=== PATIENT | female | born 1940 | race Caucasian/White ===

== ENCOUNTER → 2016-10-28 | Outpatient (CLI) | payer MEDICARE ==
--- NOTE | 2016-10-28 14:56 | US ---
EXAMINATION TYPE: US carotid duplex BILAT DATE OF EXAM: 10/28/2016 COMPARISON: NONE CLINICAL HISTORY: I65.29 Carotid Stenosis. EXAM MEASUREMENTS: RIGHT: Peak Systolic Velocity (PSV) cm/sec ----- Right CCA: 57.2 ----- Right ICA: 124.0 ----- Right ECA: 91.8 ICA/CCA ratio: 2.2 RIGHT: End Diastole cm/sec ----- Right CCA: 11.9 ----- Right ICA: 39.2 ----- Right ECA: 11.5 LEFT: Peak Systolic Velocity (PSV) cm/sec ----- Left CCA: 82.2 ----- Left ICA: 98.8 ----- Left ECA: 96.3 ICA/CCA ratio: 1.2 LEFT: End Diastole cm/sec ----- Left CCA: 14.6 ----- Left ICA: 29.1 ----- Left ECA: 13.6 VERTEBRALS (direction of flow): Right Vertebral: Antegrade Left Vertebral: Antegrade Tortuous vessels noted bilaterally. Moderate plaque noted bilateral bifurcations and left CCA IMPRESSION: 1. 50-69% stenosis right ICA. Criteria for Assigning % of Stenosis / Diameter reduction (Estimation based on the indirect measurements of the internal carotid artery velocities (ICA PSV). 1. Normal (no stenosis)=ICA PSV < 125 cm/s: ratio < 2.0: ICA EDV<40 cm/s. 2. Less than 50% stenosis=ICA PSV < 125 cm/s: ratio < 2.0: ICA EDV<40 cm/s. 3. 50 to 69% stenosis=ICA PSV of 125 to 230 cm/s: ration 2.0 ? 4.0: ICA EDV 40-100 cm/s. 4. Greater than 70% stenosis to near occlusion= ICA PSV > 230 cm/s: ratio > 4.0: ICA EDV > 100 cm/s. 5. Near occlusion= ICA PSV velocities may be low or undetectable: variable ratio and ICA EDV. 6. Total occlusion=unable to detect flow.
== END | disposition home or self-care (01) ==
LOC: RADUSWWP 14:10
PROVIDERS: ATTEND Internal Medicine Geriatric Medicine
DX: I65.21 Occlusion and stenosis of right carotid artery (principal)
CPT/HCPCS: 93880

== ENCOUNTER → 2017-01-26 | Outpatient (CLI) | payer MEDICARE ==
--- NOTE | 2017-01-27 11:23 | MM ---
Reason for exam: screening (asymptomatic). Last mammogram was performed 1 year ago. History: Patient is postmenopausal. Family history of premenopausal breast cancer in mother at age 44. Took estrogen for 10 years beginning at age 49. Took progesterone for 10 years beginning at age 49. Physical Findings: A clinical breast exam by your physician is recommended on an annual basis and results should be correlated with mammographic findings. MG 3D Screening Mammo W/Cad Bilateral CC and MLO view(s) were taken. Prior study comparison: January 26, 2016, bilateral MG 3d screening mammo w/cad. January 17, 2015, bilateral MG screening mammo w CAD. 5mm retroareolar asymmetry in the right breast. ASSESSMENT: Incomplete: need additional imaging evaluation, BI-RAD 0 RECOMMENDATION: Special view mammogram of the right breast. If lesion persists on supplemental views, image directed ultrasound is recommended. [facility] will attempt to contact patient to return for supplemental views and ultrasound if indicated.
== END | disposition home or self-care (01) ==
LOC: RADMAMWWP 13:26
PROVIDERS: ATTEND Obstetrics & Gynecology
DX: Z12.31 Encounter for screening mammogram for malignant neoplasm of breast (principal)
CPT/HCPCS: 77063; G0202

== ENCOUNTER → 2017-02-02 | Outpatient (CLI) | payer MEDICARE ==
--- NOTE | 2017-02-02 11:47 | MM ---
Reason for exam: additional evaluation requested from abnormal screening. Last mammogram was performed less than 1 month ago. History: Patient is postmenopausal. Family history of premenopausal breast cancer in mother at age 44. Took estrogen for 10 years beginning at age 49. Took progesterone for 10 years beginning at age 49. Physical Findings: Nurse did not find any significant physical abnormalities on exam. MG 3D Work Up W/Cad RT CC and MLO view(s) were taken of the right breast. Prior study comparison: January 26, 2017, bilateral MG 3d screening mammo w/cad. January 26, 2016, bilateral MG 3d screening mammo w/cad. The breast tissue is heterogeneously dense. This may lower the sensitivity of mammography. There is no discrete abnormality. These results were verbally communicated with the patient and result sheet given to the patient on 02/02/17. ASSESSMENT: Negative, BI-RAD 1 RECOMMENDATION: Return to routine screening mammogram schedule for both breasts.
== END | disposition home or self-care (01) ==
LOC: RADMAMWWP 10:14
PROVIDERS: ATTEND Obstetrics & Gynecology
DX: R92.8 Other abnormal and inconclusive findings on diagnostic imaging of breast (principal)
CPT/HCPCS: G0206; G0279

== ENCOUNTER → 2018-02-03 | Outpatient (CLI) | payer MEDICARE ==
--- NOTE | 2018-02-06 13:32 | MM ---
Reason for exam: screening (asymptomatic). Last mammogram was performed 1 year ago. History: Patient is postmenopausal. Family history of premenopausal breast cancer in mother at age 44. Took estrogen for 10 years beginning at age 49. Took progesterone for 10 years beginning at age 49. Physical Findings: A clinical breast exam by your physician is recommended on an annual basis and results should be correlated with mammographic findings. MG 3D Screening Mammo W/Cad Bilateral CC and MLO view(s) were taken. Prior study comparison: February 02, 2017, right breast MG 3d work up w/cad RT. January 26, 2017, bilateral MG 3d screening mammo w/cad. The breast tissue is heterogeneously dense. This may lower the sensitivity of mammography. Benign calcifications bilaterally. No significant changes when compared with prior studies. ASSESSMENT: Benign, BI-RAD 2 RECOMMENDATION: Routine screening mammogram of both breasts in 1 year.
== END | disposition home or self-care (01) ==
LOC: RADMAMWWP 09:15
PROVIDERS: ATTEND Obstetrics & Gynecology
DX: Z12.31 Encounter for screening mammogram for malignant neoplasm of breast (principal)
CPT/HCPCS: 77063; 77067

== ENCOUNTER → 2019-02-07 | Outpatient (CLI) | payer MEDICARE ==
--- NOTE | 2019-02-08 13:47 | MM ---
Reason for exam: screening (asymptomatic). Last mammogram was performed 1 year ago. History: Patient is postmenopausal. Family history of premenopausal breast cancer in mother at age 44. Took estrogen for 10 years beginning at age 49. Took progesterone for 10 years beginning at age 49. Physical Findings: A clinical breast exam by your physician is recommended on an annual basis and results should be correlated with mammographic findings. MG 3D Screening Mammo W/Cad Bilateral CC and MLO view(s) were taken. Prior study comparison: February 03, 2018, bilateral MG 3d screening mammo w/cad. February 02, 2017, right breast MG 3d work up w/cad RT. The breast tissue is heterogeneously dense. This may lower the sensitivity of mammography. Focal asymmetry upper outer right breast 7.4cm from nipple. This finding is changed when compared with previous exams. ASSESSMENT: Incomplete: need additional imaging evaluation, BI-RAD 0 RECOMMENDATION: Special view mammogram of the right breast. If lesion persists on supplemental views, image directed ultrasound is recommended. [facility] will attempt to contact patient to return for supplemental views and ultrasound if indicated.
== END | disposition home or self-care (01) ==
LOC: RADMAMWWP 09:52
PROVIDERS: ATTEND Obstetrics & Gynecology
DX: Z12.31 Encounter for screening mammogram for malignant neoplasm of breast (principal)
CPT/HCPCS: 77063; 77067

== ENCOUNTER → 2019-02-19 | Outpatient (CLI) | payer MEDICARE ==
--- NOTE | 2019-02-19 19:56 | BD ---
EXAMINATION TYPE: Axial Bone Density DATE OF EXAM: 02/19/2019 COMPARISON: NONE CLINICAL HISTORY: 78-year-old female with disorder of bone Height: 60 IN Weight: 157 LBS FRAX RISK QUESTIONS: Family History (Parent hip fracture): YES FATHER Secondary Osteoporosis: 3. Menopause before 45: YES PARTIAL HYST AGE 29 RISK FACTORS HISTORY OF: Active: YES Postmenopausal woman: AGE 29 Take estrogen and/or progesterone medications: NOT NOW How long: AGE 30-31 MEDICATIONS: Thyroid Medications: YES Which medication: Levothyroxine How Lon YEAR Osteoporosis Medications: NOT NOW Which medication: Fosamax How Lon YEAR Additional Medications: LEVOTHYROXINE, BLOOD PRESSURE MEDS, CHOLESTEROL MEDS, ANTACID MEDS, GLUCOSAMI NE CHONDROITIN EXAM MEASUREMENTS: Bone mineral densitometry was performed using the [employer] System. Bone mineral density as measured about the Lumbar spine is: ----- L1-L4(G/cm2): 1.127 T Score Values are as follows: ----- L2: -0.5 ----- L3: -0.3 ----- L4: 0.0 ----- L1-L4: -0.4 Bone mineral density BASELINE Bone mineral density about the R hip (g/cm2): 0.778 Bone mineral density about the L hip (g/cm2): 0.866 T Score values are as follows: -----R Neck: -1.9 -----L Neck: -1.2 -----R Total: -0.6 -----L Total: -0.6 Bone mineral density BASELINE IMPRESSION: Osteopenia (T Score between -2.5 and -1). There is slightly increased risk of fracture and the patient may be considered for treatment. Re-Screen 2-5 years. NOTE: T-SCORE=SD OF THE YOUNG ADULT MEAN.
== END | disposition home or self-care (01) ==
LOC: RADBDWWP 09:13
PROVIDERS: ATTEND Obstetrics & Gynecology
DX: M85.80 Other specified disorders of bone density and structure, unspecified site (principal); M89.9 Disorder of bone, unspecified
CPT/HCPCS: 77080

== ENCOUNTER 2019-02-21 15:04 | Emergency (ER) | payer MEDICARE ==
[2019-02-21 15:37] VITALS: TEMP 98.1
[2019-02-21] MEDS ORDERED: IBUPROFEN 600 MG TAB PO STA (16:15)
--- NOTE | 2019-02-21 16:25 | ED ---
Fall HPI - General Chief Complaint: Fall Stated Complaint: fall/ hip and chest Time Seen by Provider: 02/21/19 16:07 Source: patient Mode of arrival: ambulatory - History of Present Illness Initial Comments: Patient is a 78-year-old female presenting to emergency Department after falling today at her house. Patient states she tripped over some edging in her yard falling to the right side of her body. Patient states she hit the right side of her face as well as a right forearm. Patient is also having left-sided rib pain. Patient denies being on a blood thinner. Patient denies LOC, headache. Patient does have some mild pain along the her right eye where she hit. Patient denies fever, chills, nausea, vomiting. Patient has no other complaints at this time. Upon arrival to ER, vital signs are stable. - Related Data Home Medications Medication Instructions Recorded Confirmed Losartan/Hydrochlorothiazide 1 tab PO DAILY 12/21/13 02/21/19 [Losartan-Hctz 100-25 mg Tab] Potassium Chloride [Klor-Con 10] 10 meq PO BID 12/21/13 02/21/19 Rosuvastatin Calcium [Crestor] 10 mg PO W/SUPPER 12/21/13 02/21/19 cycloSPORINE 0.05% OPHTH SOLN 1 applicator BOTH EYES Q12H 12/21/13 02/21/19 [Restasis 0.05% Ophth Soln] Aspirin EC [Ecotrin Low Dose] 1 tab PO HS 01/22/14 02/21/19 amLODIPine BESYLATE [Norvasc] 5 mg PO DAILY 01/22/14 02/21/19 Levothyroxine Sodium [Synthroid] 50 mcg PO DAILY 02/21/19 02/21/19 Metoprolol Tartrate [Lopressor] 200 mg PO DAILY 02/21/19 02/21/19 Allergies Allergy/AdvReac Type Severity Reaction Status Date / Time Sulfa (Sulfonamide Allergy Severe dizzyness Verified 02/21/19 16:56 Antibiotics) prochlorperazine edisylate Allergy Nausea & Verified 02/21/19 16:56 [From Compazine] Vomiting prochlorperazine maleate Allergy Nausea & Verified 02/21/19 16:56 [From Compazine] Vomiting naproxen AdvReac tachycardia Verified 02/21/19 16:56 Review of Systems ROS Statement: Those systems with pertinent positive or pertinent negative responses have been documented in the HPI. ROS Other: All systems not noted in ROS Statement are negative. Past Medical History Past Medical History: GERD/Reflux, Hyperlipidemia, Hypertension, Osteoarthritis (OA), Skin Disorder Additional Past Medical History / Comment(s): pt states CHF, vericose veins, and pre skincancer rx of chemo cream to legs History of Any Multi-Drug Resistant Organisms: None Reported Past Surgical History: Cholecystectomy, Hysterectomy, Tonsillectomy Additional Past Surgical History / Comment(s): Right knee replacement, bladder surgery Past Anesthesia/Blood Transfusion Reactions: No Reported Reaction Past Psychological History: Anxiety Smoking Status: Never smoker Past Alcohol Use History: None Reported Past Drug Use History: None Reported - Past Family History Mother Brother(s) Family Medical History: Cancer General Exam - General Exam Comments Initial Comments: GENERAL: Well-appearing, well-nourished and in no acute distress. HEAD: Atraumatic, normocephalic. EYES: Pupils equal round and reactive to light, extraocular movements intact, sclera anicteric, conjunctiva are normal. There is mild swelling and bruising to the lateral aspect of the right upper orbit. There is some mild tenderness with palpation. ENT: TMs normal, nares patent, oropharynx clear without exudates. Moist mucous membranes. NECK: Normal range of motion, supple without lymphadenopathy or JVD. LUNGS: Breath sounds clear to auscultation bilaterally and equal. No wheezes rales or rhonchi. Pain with palpation of the left lateral and anterior ribs. HEART: Regular rate and rhythm without murmurs, rubs or gallops. ABDOMEN: Soft, nontender, normoactive bowel sounds. No guarding, no rebound. No masses appreciated. : Deferred EXTREMITIES: Pain with palpation of the right forearm. There is no swelling or bruising noted. Patient has full range of motion of the right elbow and right shoulder. Normal range of motion of the left shoulder. Normal range of motion of the lower extremities. No clubbing or cyanosis. NEUROLOGICAL: Cranial nerves II through XII grossly intact. Normal speech, normal gait. PSYCH: Normal mood, normal affect. SKIN: Warm, Dry, normal turgor, no rashes or lesions noted. Limitations: no limitations Course Vital Signs 02/21/19 02/21/19 15:32 17:53 Temperature 98.1 F Pulse Rate 77 76 Respiratory 16 18 Rate Blood Pressure 182/81 187/81 O2 Sat by Pulse 96 95 Oximetry Medical Decision Making - Medical Decision Making Patient is a 78-year-old female presenting with pain to her right upper eye as well as her left ribs and right forearm after falling at her house. Patient landed on cement. Patient denies LOC, headache. Patient denies any abdominal pain. Patient denies being on blood thinners. On exam patient has mild bruising to the right upper orbit as well as some pain to palpation left ribs. CT of the brain, C-spine, facial bones reveal no acute fractures dislocations, no acute intercranial hemorrhage. X-rays of the right forearm and of bilateral ribs and chest report no acute fractures. Patient is stable for discharge at this time. As discussed with patient that she mainly has contusions. Patient will use ice and Motrin for pain relief. Patient is in agreement with this plan of care. Return parameters were discussed with the patient she verbalized understanding. Case discussed with Dr. Xie. Disposition Clinical Impression: Fall, Rib pain on left side, Contusion, eye, left Disposition: HOME SELF-CARE Condition: Stable Instructions (If sedation given, give patient instructions): Contusion in Adults (ED), Fall Prevention (ED) Additional Instructions: Please return to the Emergency Department if symptoms worsen or any other concerns. Continue with Motrin as needed for pain. Use icing to eye for swelling. Is patient prescribed a controlled substance at d/c from ED?: No Referrals: Grant Whitehead MD [Primary Care Provider] - 1-2 days
--- NOTE | 2019-02-21 17:05 | CT ---
EXAMINATION TYPE: CT brain cspine wo con, CT facial bones wo con DATE OF EXAM: 02/21/2019 COMPARISON: NONE HISTORY: Neck pain, headache, and right eye contusion post fall today CT DLP: 1062.6 (accession [id number]), 661.5 (accession [id number]) mGycm. Automated Exposure Control for Dose Reduction was Utilized. TECHNIQUE: CT scan of the head, facial bones, and cervical spine are performed without contrast. FINDINGS: There is no acute intracranial hemorrhage or midline shift identified. The ventricles an d sulci are within normal limits in size for patient's age. Areas of low attenuation in deep and per iventricular white matter are present. Findings presumed product of chronic small vessel ischemic charbel nge in patient of this age. The calvarium is intact. Nasal bones are intact. Orbital floors and marques are intact. The globes are intact bilaterally. Intra conal fat is preserved. Small ill-defined hematoma right preseptal region extending over right zygoma . Zygomatic arches are intact. Visualized portions of mandible is intact. Temporomandibular joints ar e maintained. The maxilla is intact. Pterygoid plates are intact. Paranasal sinuses are grossly clear . Cervical spine is visualized in its entirety from C1 through upper thoracic levels and demonstrates l oss of normal cervical curvature without evidence of acute fracture or dislocation. There is multile lucio spondylolisthesis on sagittal images. Prevertebral soft tissue appears within normal limits. The C1-C2 articulation is within normal limits on coronal images. Vertebral body heights are maintained . There is moderate multilevel disc space narrowing C3-C4 through the C6-C7 levels. Posterior spur di sc complexes are patent. The thecal sac C4-C5 through C6-C7 level on sagittal and axial images. Axial images show moderate to severe calcified plaque bilateral carotid bulb level. Thyroid gland is felt within normal limits. Lung apices are clear. IMPRESSION: 1. There is no acute fracture or dislocation evident in the cervical spine. 2. No acute intracranial hemorrhage or midline shift is seen. 3. No acute facial bone fracture or dislocation.
--- NOTE | 2019-02-21 17:22 | XR ---
EXAMINATION TYPE: XR forearm RT DATE OF EXAM: 02/21/2019 CLINICAL HISTORY: Right arm pain after injury TECHNIQUE: Two views of the right forearm are obtained. COMPARISON: None. FINDINGS: There is no acute fracture or dislocation seen in the right radius or ulna. Incidentally noted negative ulnar variance. The right elbow and wrist joints appear within normal limits. The ove rlying soft tissue appears within normal limits. Degenerative changes seen of the first carpometacarp al joint. IMPRESSION: There is no acute fracture or dislocation seen in the right radius or ulna.
--- NOTE | 2019-02-21 17:26 | XR ---
EXAMINATION TYPE: XR ribs bilat w pa chest xray DATE OF EXAM: 02/21/2019 COMPARISON: NONE HISTORY: Rib pain after fall. TECHNIQUE: Single frontal view of the chest and 2 views of the bilateral ribs were obtained. FINDINGS: Haziness of the hemidiaphragms appears to relate to atelectasis as this is improved on fron sabino and oblique views of the ribs and transient. Cardiomediastinal silhouette is upper limits of norm al. Slight eventration of the right hemidiaphragm is noted. Mild dextroscoliosis of the thoracic spin e. Degenerative changes of the shoulders are seen, right greater than left. No acute displaced rib fracture is seen nor chronic callused rib fracture deformity. There is mild ge neralized osseous demineralization. IMPRESSION: No acute displaced fracture of the ribs bilaterally. Transient subsegmental dependent ate lectasis.
[2019-02-21 17:55] VITALS: BP 187/81; PULSE 76; RESP 18
== END 2019-02-21 17:53 | disposition home or self-care (01) ==
LOC: EC 15:04
DX: S05.11XA Contusion of eyeball and orbital tissues, right eye, initial encounter (principal); R07.81 Pleurodynia; E78.5 Hyperlipidemia, unspecified; I11.0 Hypertensive heart disease with heart failure; I50.9 Heart failure, unspecified; M19.90 Unspecified osteoarthritis, unspecified site; Z96.651 Presence of right artificial knee joint; Z79.82 Long term (current) use of aspirin; Z79.890 Hormone replacement therapy; Z79.899 Other long term (current) drug therapy; Z88.2 Allergy status to sulfonamides; Z88.8 Allergy status to other drugs, medicaments and biological substances; Z88.6 Allergy status to analgesic agent; W01.10XA Fall on same level from slipping, tripping and stumbling with subsequent striking against unspecified object, initial encounter; Y92.096 Garden or yard of other non-institutional residence as the place of occurrence of the external cause
CPT/HCPCS: 70450; 70486; 71111; 72125; 99284

== ENCOUNTER → 2019-02-21 | Outpatient (CLI) | payer MEDICARE ==
--- NOTE | 2019-02-22 08:42 | MM ---
Reason for exam: additional evaluation requested from abnormal screening. Last mammogram was performed less than 1 month ago. History: Patient is postmenopausal. Family history of premenopausal breast cancer in mother at age 44. Took estrogen for 10 years beginning at age 49. Took progesterone for 10 years beginning at age 49. Physical Findings: Nurse did not find any significant physical abnormalities on exam. MG 3D Work Up W/Cad RT Spot compression CC, spot compression MLO, and LM view(s) were taken of the right breast. Prior study comparison: February 07, 2019, bilateral MG 3d screening mammo w/cad. January 26, 2016, bilateral MG 3d screening mammo w/cad. The breast tissue is heterogeneously dense. This may lower the sensitivity of mammography. There is no discrete abnormality. These results were verbally communicated with the patient and result sheet given to the patient on 02/21/19. ASSESSMENT: Negative, BI-RAD 1 RECOMMENDATION: Return to routine screening mammogram schedule for both breasts.
== END | disposition home or self-care (01) ==
LOC: RADMAMWWP 08:54
PROVIDERS: ATTEND Obstetrics & Gynecology
DX: R92.8 Other abnormal and inconclusive findings on diagnostic imaging of breast (principal)
CPT/HCPCS: 77065; G0279; 77061

== ENCOUNTER → 2020-04-30 | Outpatient (CLI) | payer MEDICARE ==
--- NOTE | 2020-05-01 08:34 | MM ---
Reason for exam: additional evaluation requested from prior study. Last mammogram was performed 1 year and 2 months ago. History: Patient is postmenopausal. Family history of premenopausal breast cancer in mother at age 44. Took estrogen for 10 years beginning at age 49. Took progesterone for 10 years beginning at age 49. Physical Findings: Nurse did not find any significant physical abnormalities on exam. MG 3D Diag Mammo W/Cad DALIA Bilateral CC and MLO view(s) were taken. Prior study comparison: February 21, 2019, right breast MG 3d work up w/cad RT. February 07, 2019, bilateral MG 3d screening mammo w/cad. The breast tissue is heterogeneously dense. This may lower the sensitivity of mammography. No significant new findings when compared with previous films. These results were verbally communicated with the patient and result sheet given to the patient on 04/30/20. ASSESSMENT: Benign, BI-RAD 2 RECOMMENDATION: Routine screening mammogram of both breasts in 1 year.
== END | disposition home or self-care (01) ==
LOC: RADMAMWWP 14:10
PROVIDERS: ATTEND Obstetrics & Gynecology
DX: N63.10 Unspecified lump in the right breast, unspecified quadrant (principal); N63.20 Unspecified lump in the left breast, unspecified quadrant
CPT/HCPCS: 77066; G0279; 77062

== ENCOUNTER 2020-06-26 13:05 | Emergency (ER) | payer MEDICARE ==
[2020-06-26 13:12] VITALS: TEMP 98.1
[2020-06-26] MEDS ORDERED: hydrALAZINE HCL 20 MG/ML 1 ML VIAL IVP STA (13:37)
--- NOTE | 2020-06-26 13:50 | ED ---
General Adult HPI - General Chief complaint: Headache Stated complaint: High BP Time Seen by Provider: 06/26/20 13:10 Source: patient, RN notes reviewed, old records reviewed Mode of arrival: ambulatory Limitations: no limitations - History of Present Illness Initial comments: This is an 79-year-old female presents emergency Department complaining that her blood pressure is elevated. Patient states she takes 3 blood pressure medications already. Patient states she had a mild headache and had a bloody nose over the weekend so she decided go get a blood pressure cuff and when she took her blood pressure was elevated so she came to the emergency department. Patient states her headache is very slight. Patient denies any lightheadedness or dizziness. Patient denies numbness or weakness. Patient denies any chest pain difficulty breathing shortness of breath. Patient denies any palpitations. Patient denies any recent fever chills or cough. Patient denies abdominal pain. Patient denies any leg swelling or calf tenderness. - Related Data Home Medications Medication Instructions Recorded Confirmed Potassium Chloride [Klor-Con 10] 10 meq PO BID 12/21/13 06/26/20 Rosuvastatin Calcium [Crestor] 10 mg PO W/SUPPER 12/21/13 06/26/20 cycloSPORINE 0.05% OPHTH SOLN 1 drop BOTH EYES Q12H 12/21/13 06/26/20 [Restasis 0.05% Ophth Soln] Aspirin EC [Ecotrin Low Dose] 81 mg PO HS 01/22/14 06/26/20 amLODIPine BESYLATE [Norvasc] 5 mg PO DAILY@1530 01/22/14 06/26/20 Levothyroxine Sodium [Synthroid] 50 mcg PO DAILY 02/21/19 06/26/20 Metoprolol Tartrate [Lopressor] 200 mg PO HS 02/21/19 06/26/20 Losartan Potassium 100 mg PO DAILY 06/26/20 06/26/20 Sucralfate [Carafate] 1 gm PO ACHS 06/26/20 06/26/20 hydroCHLOROthiazide [Hydrodiuril] 25 mg PO DAILY 06/26/20 06/26/20 Previous Rx's Medication Instructions Recorded hydrALAZINE HCL [Apresoline] 50 mg PO BID #20 tab 06/26/20 hydrALAZINE HCL [Apresoline] 50 mg PO BID #20 tab 06/26/20 Allergies Allergy/AdvReac Type Severity Reaction Status Date / Time Sulfa (Sulfonamide AdvReac Severe dizzyness Verified 06/26/20 14:08 Antibiotics) naproxen AdvReac tachycardia Verified 06/26/20 14:08 prochlorperazine edisylate AdvReac Nausea & Verified 06/26/20 14:08 [From Compazine] Vomiting prochlorperazine maleate AdvReac Nausea & Verified 06/26/20 14:08 [From Compazine] Vomiting Review of Systems ROS Statement: Those systems with pertinent positive or pertinent negative responses have been documented in the HPI. ROS Other: All systems not noted in ROS Statement are negative. Past Medical History Past Medical History: GERD/Reflux, Hyperlipidemia, Hypertension, Osteoarthritis (OA), Skin Disorder Additional Past Medical History / Comment(s): pt states CHF, vericose veins, and pre skin cancer rx of chemo cream to legs History of Any Multi-Drug Resistant Organisms: None Reported Past Surgical History: Cholecystectomy, Hysterectomy, Tonsillectomy Additional Past Surgical History / Comment(s): Right knee replacement, bladder surgery Past Anesthesia/Blood Transfusion Reactions: No Reported Reaction Past Psychological History: Anxiety Smoking Status: Never smoker Past Alcohol Use History: None Reported Past Drug Use History: None Reported - Past Family History Mother Brother(s) Family Medical History: Cancer General Exam - General Exam Comments Initial Comments: GENERAL: Patient is well-developed and well-nourished. Patient is nontoxic and well- hydrated and is in no acute distress. ENT: Neck is soft and supple. No significant lymphadenopathy is noted. Oropharynx is clear. Moist mucous membranes. Neck has full range of motion without eliciting any pain. EYES: The sclera were anicteric and conjunctiva were pink and moist. Extraocular movements were intact and pupils were equal round and reactive to light. Eyelids were unremarkable. PULMONARY: Unlabored respirations. Good breath sounds bilaterally. No audible rales rhonchi or wheezing was noted. CARDIOVASCULAR: There is a regular rate and rhythm without any murmurs gallops or rubs. ABDOMEN: Soft and nontender with normal bowel sounds. SKIN: Skin is clear with no lesions or rashes and otherwise unremarkable. NEUROLOGIC: Patient is alert and oriented x3. Cranial nerves II through XII are grossly intact. Motor and sensory are also intact. Normal speech, volume and content. Symmetrical smile. MUSCULOSKELETAL: Normal extremities with adequate strength and full range of motion. No lower ex tremity swelling or edema. No calf tenderness. LYMPHATICS: No significant lymphadenopathy is noted PSYCHIATRIC: Normal psychiatric evaluation. Limitations: no limitations Course Vital Signs 06/26/20 06/26/20 06/26/20 13:10 13:49 14:12 Temperature 98.1 F Pulse Rate 74 77 78 Respiratory 18 16 16 Rate Blood Pressure 209/87 223/93 154/67 O2 Sat by Pulse 99 98 99 Oximetry Medical Decision Making - Medical Decision Making EKG shows normal sinus rhythm at 69 bpm MT interval is 162 QRS is 88 QT interval 426 QTC is 456. Patient's EKG shows no ST segment elevation or depression. - Lab Data Result diagrams: 06/26/20 13:37 06/26/20 13:37 Lab Results 06/26/20 06/26/20 Range/Units 13:37 13:37 WBC 9.0 (3.8-10.6) k/uL RBC 4.82 (3.80-5.40) m/uL Hgb 14.8 (11.4-16.0) gm/dL Hct 44.0 (34.0-46.0) % MCV 91.3 (80.0-100.0) fL MCH 30.8 (25.0-35.0) pg MCHC 33.7 (31.0-37.0) g/dL RDW 13.0 (11.5-15.5) % Plt Count 306 (150-450) k/uL MPV 7.3 Neutrophils % 65 % Lymphocytes % 23 % Monocytes % 5 % Eosinophils % 4 % Basophils % 1 % Neutrophils # 5.9 (1.3-7.7) k/uL Lymphocytes # 2.1 (1.0-4.8) k/uL Monocytes # 0.5 (0-1.0) k/uL Eosinophils # 0.4 (0-0.7) k/uL Basophils # 0.1 (0-0.2) k/uL Sodium 138 (137-145) mmol/L Potassium 4.0 (3.5-5.1) mmol/L Chloride 99 (98-107) mmol/L Carbon Dioxide 26 (22-30) mmol/L Anion Gap 13 mmol/L BUN 18 H (7-17) mg/dL Creatinine 0.74 (0.52-1.04) mg/dL Est GFR (CKD-EPI)AfAm 89 (>60 ml/min/1.73 sqM) Est GFR (CKD-EPI)NonAf 77 (>60 ml/min/1.73 sqM) Glucose 112 H (74-99) mg/dL Calcium 10.1 (8.4-10.2) mg/dL Magnesium 2.1 (1.6-2.3) mg/dL Total Bilirubin 0.9 (0.2-1.3) mg/dL AST 31 (14-36) U/L ALT 22 (4-34) U/L Alkaline Phosphatase 71 (38-126) U/L Total Protein 8.9 H (6.3-8.2) g/dL Albumin 4.8 (3.5-5.0) g/dL Disposition Clinical Impression: Hypertension Disposition: HOME SELF-CARE Prescriptions: hydrALAZINE HCL [Apresoline] 50 mg PO BID #20 tab hydrALAZINE HCL [Apresoline] 50 mg PO BID #20 tab Is patient prescribed a controlled substance at d/c from ED?: No Referrals: Grant Whitehead MD [Primary Care Provider] - 1-2 days
[2020-06-26 13:51] VITALS: RESP 16
[2020-06-26 13:56] LABS: Basophils # (A) 0.1 k/uL (0-0.2); Basophils % (A) 1 %; Eosinophils # (A) 0.4 k/uL (0-0.7); Eosinophils % (A) 4 %; HGB 14.8 gm/dL (11.4-16.0); Lymphocytes # (A) 2.1 k/uL (1.0-4.8); Lymphocytes % (A) 23 %; MCH 30.8 pg (25.0-35.0); MCHC 33.7 g/dL (31.0-37.0); MCV 91.3 fL (80.0-100.0); Mean Platelet Volume 7.3; Monocytes # (A) 0.5 k/uL (0-1.0); Monocytes % (A) 5 %; Neutrophils # (A) 5.9 k/uL (1.3-7.7); Neutrophils % (A) 65 %; Platelet Count 306 k/uL (150-450); RBC 4.82 m/uL (3.80-5.40)
[2020-06-26 14:09] LABS: Albumin 4.8 g/dL (3.5-5.0); Calcium 10.1 mg/dL (8.4-10.2); Magnesium 2.1 mg/dL (1.6-2.3); Total Bilirubin 0.9 mg/dL (0.2-1.3); Total Protein 8.9 g/dL (6.3-8.2)
[2020-06-26 14:14] VITALS: BP 154/67; PULSE 78
== END 2020-06-26 14:46 | disposition home or self-care (01) ==
LOC: EC 13:05
DX: I11.0 Hypertensive heart disease with heart failure (principal); I50.9 Heart failure, unspecified; E78.5 Hyperlipidemia, unspecified; K21.9 Gastro-esophageal reflux disease without esophagitis; M19.90 Unspecified osteoarthritis, unspecified site; Z79.82 Long term (current) use of aspirin; Z79.899 Other long term (current) drug therapy; Z79.890 Hormone replacement therapy; Z88.2 Allergy status to sulfonamides; Z88.6 Allergy status to analgesic agent; Z88.8 Allergy status to other drugs, medicaments and biological substances; Z96.651 Presence of right artificial knee joint; Z85.828 Personal history of other malignant neoplasm of skin
CPT/HCPCS: 36415; 93005; 80053; 83735; 85025; 99284; 96374; J0360

== ENCOUNTER → 2021-02-13 | Outpatient (CLI) | payer MEDICARE ==
--- NOTE | 2021-02-13 12:54 | US ---
EXAMINATION TYPE: US abdomen complete DATE OF EXAM: 02/13/2021 COMPARISON: NONE CLINICAL HISTORY: R94.5 Abnormal liver function studies. EXAM MEASUREMENTS: Liver Length: 13.3 cm CBD: 0.7 cm Spleen: 8.1x2.4x7.6 cm Right Kidney: 10.2x5.2x4.8 cm Left Kidney: 9.2x4.5x3.9 cm Pancreas: wnl Liver: Increased attenuation Gallbladder: Surgically absent CBD: wnl- for absent GB Spleen: wnl Right Kidney: wnl Left Kidney: wnl Upper IVC: wnl Abd Aorta: wnl IMPRESSION: 1. Nonspecific pattern of liver can be associated with hepatic steatosis or diffuse hepatocellular di sease including hepatitis.
== END | disposition home or self-care (01) ==
LOC: RADUSWWP 12:15
PROVIDERS: ATTEND Internal Medicine Geriatric Medicine
DX: R94.5 Abnormal results of liver function studies (principal)
CPT/HCPCS: 76700

== ENCOUNTER → 2021-03-11 | Outpatient (CLI) | payer MEDICARE ==
--- NOTE | 2021-03-11 15:12 | BD ---
EXAMINATION TYPE: Axial Bone Density DATE OF EXAM: 03/11/2021 COMPARISON: NONE CLINICAL HISTORY: Height: 4 FT 11 IN Weight: 148 FRAX RISK QUESTIONS: Alcohol (3 or more units per day): NO Family History (Parent hip fracture): YES Glucocorticoids (More than 3mos): NO (Ex: prednisone, prednisolone, methylprednisolone, dexamethasone, and hydrocortisone). History of Fracture in Adulthood: NO Secondary Osteoporosis: 1. Type 1 Diabetes: NO 2. Hyperthyroidism: HYPO 3. Menopause before 45: NO 4. Malnutrition: NO 5. Chronic liver disease: FATTY Rheumatoid Arthritis: NO Current Tobacco Use: NO RISK FACTORS HISTORY OF: Surgery to Spine/Hip(right/left)/Wrist (right/left): NO Family History of Osteoporosis: NO Active: NO Diet low in dairy products/other sources of calcium: NO Postmenopausal woman: PART HYST AGE 29 MENOPAUSE OVER LATE 40'S Take estrogen and/or progesterone medications: VERY SHORT TIME Lost more than 2 inches in height since high school: YES MEDICATIONS: Thyroid Medications: YES Which medication: LEVOTHYROXINE How Long: SEV YEARS Additional Medications: LEVOTHYROXINE, ROVSUVASTATIN, METOPROLOL, LOSARTAN, AMLODIPINE, HYDRALAZINE, ASPIRIN, HYDROCHLOROTHIAZIDE, PANTOPRAZOLE, Additional History: EXAM MEASUREMENTS: Bone mineral densitometry was performed using the [employer] System. Bone mineral density as measured about the Lumbar spine is: ----- L1-L4(G/cm2): 1.211 T Score Values are as follows: ----- L2: 0.1 ----- L3: 0.1 ----- L4: 0.7 ----- L1-L4: 0.3 Bone mineral density has: INCREASED 5.9 % since study of: 2019 Bone mineral density about the R hip (g/cm2): 0.758 Bone mineral density about the L hip (g/cm2): 0.823 T Score values are as follows: -----R Neck: -2.0 -----L Neck: -1.5 -----R Total: -0.7 -----L Total: -0.9 Bone mineral density has: DECREASED -2.4 % since study of: 2019 IMPRESSION: Osteopenia (T Score between -2.5 and -1). There is slightly increased risk of fracture and the patient may be considered for treatment. Re-Screen 2-5 years. NOTE: T-SCORE=SD OF THE YOUNG ADULT MEAN.
== END | disposition home or self-care (01) ==
LOC: RADBDWWP 14:31
PROVIDERS: ATTEND Internal Medicine Geriatric Medicine
DX: M85.852 Other specified disorders of bone density and structure, left thigh (principal)
CPT/HCPCS: 77080

== ENCOUNTER → 2021-05-12 | Outpatient (CLI) | payer MEDICARE ==
--- NOTE | 2021-05-13 12:38 | MM ---
Reason for exam: screening (asymptomatic). Last mammogram was performed 1 year ago. History: Patient is postmenopausal. Family history of premenopausal breast cancer in mother at age 44. Took estrogen for 10 years beginning at age 49. Took progesterone for 10 years beginning at age 49. Physical Findings: A clinical breast exam by your physician is recommended on an annual basis and results should be correlated with mammographic findings. MG 3D Screening Mammo W/Cad Bilateral CC and MLO view(s) were taken. Prior study comparison: April 30, 2020, bilateral MG 3d diag mammo w/cad [facility]. February 21, 2019, right breast MG 3d work up w/cad RT. The breast tissue is heterogeneously dense. This may lower the sensitivity of mammography. Benign appearing bilateral calcifications. No significant changes when compared with prior studies. ASSESSMENT: Benign, BI-RAD 2 RECOMMENDATION: Routine screening mammogram of both breasts in 1 year.
== END | disposition home or self-care (01) ==
LOC: RADMAMWWP 13:30
PROVIDERS: ATTEND Internal Medicine Geriatric Medicine
DX: Z12.31 Encounter for screening mammogram for malignant neoplasm of breast (principal); Z80.3 Family history of malignant neoplasm of breast; Z78.0 Asymptomatic menopausal state
CPT/HCPCS: 77063; 77067

== ENCOUNTER → 2022-05-27 | Outpatient (CLI) | payer MEDICARE ==
--- NOTE | 2022-05-30 13:39 | MM ---
Reason for Exam: Screening (asymptomatic). Last screening mammogram was performed 12 month(s) ago. Patient History: Menarche at age 12. First Full-Term at age 20. Hysterectomy at age 30. Postmenopausal. Estrogen for 10 years from age 49 until age 59. Progesterone for 10 years from age 49 until age 59. Niece had breast cancer, age 55. Niece had breast cancer, age 60. Mother had breast cancer, age 44. Risk Values: Gilma 5 year model risk: 3.0%. NCI Lifetime model risk: 4.0%. Prior Study Comparison: 02/21/2019 Right Diagnostic Mammogram, [facility]. 04/30/2020 Bilateral Diagnostic Mammogram, [facility]. 05/12/2021 Bilateral Screening Mammogram, [facility]. Tissue Density: The breast tissue is heterogeneously dense. This may lower the sensitivity of mammography. Findings: Analyzed By CAD. There is no suspicious group of microcalcifications or new suspicious mass in either breast. Overall Assessment: Benign, BI-RAD 2 Management: Screening Mammogram of both breasts in 1 year. 1. Patient should continue monthly self breast exams. 2. A clinical breast exam by your physician is recommended on an annual basis. 3. This exam should not preclude additional follow-up of suspicious palpable abnormalities. Electronically signed and approved by: Maryan Blancas M.D. Radiologist
== END | disposition home or self-care (01) ==
LOC: RADMAMWWP 15:43
PROVIDERS: ATTEND Obstetrics & Gynecology
DX: Z12.31 Encounter for screening mammogram for malignant neoplasm of breast (principal); Z80.3 Family history of malignant neoplasm of breast; Z78.0 Asymptomatic menopausal state
CPT/HCPCS: 77063; 77067

== ENCOUNTER → 2023-05-31 | Outpatient (CLI) | payer MEDICARE ==
--- NOTE | 2023-05-31 16:29 | BD ---
EXAMINATION TYPE: Axial Bone Density DATE OF EXAM: 05/31/2023 CLINICAL HISTORY: 82 years old Female. ICD-10 CODE: ,M81.0 Height: 59.5 in Weight: 152 lbs FRAX RISK QUESTIONS: Family History (Parent hip fracture): yes father Secondary Osteoporosis: 3. Menopause before 45: partial hysterectomy age 29 5. Chronic liver disease: fatty liver RISK FACTORS HISTORY OF: Active: limited Diet low in dairy products/other sources of calcium: yes Postmenopausal woman: partial hysterectomy age 29 Take estrogen and/or progesterone medications: not now How lon years MEDICATIONS: Thyroid Medications: yes Which medication: Levothyroxine How Lon years Additional Medications: cholesterol meds, blood pressure meds, EXAM MEASUREMENTS: Bone mineral densitometry was performed using the [employer] System. Bone mineral density as measured about the Lumbar spine is: ----- L1-L4(G/cm2): 1.170 T Score Values are as follows: ----- L1: -0.8 ----- L2: 0.1 ----- L3: -0.1 ----- L4: 0.2 ----- L1-L4: -0.1 Z Score Values are as follows: ----- L1: 1.1 ----- L2: 1.9 ----- L3: 1.8 ----- L4: 2.0 ----- L1-L4: 1.7 Bone mineral density has: Decreased -3.4% since study of: 03/11/2021 Bone mineral density about the R hip (g/cm2): 0.900 Bone mineral density about the L hip (g/cm2): 0.866 T Score values are as follows: -----R Neck: -2.2 -----L Neck: -1.7 -----R Total: -0.9 -----L Total: -1.1 Z Score values are as follows: -----R Neck: 0.1 -----L Neck: 0.6 -----R Total: 1.3 -----L Total: 1.0 Bone mineral density has: Decreased -2.6% since study of: 03/11/2021 FRAX%s: The graph provided illustrates a 31.1% chance for a major osteoporotic fx and a 21.1% chance for the hips probability for fx in 10 years time. IMPRESSION: Osteopenia (T Score between -2.5 and -1). There is slightly increased risk of fracture and the patient may be considered for treatment. Re-Screen 2-5 years. NOTE: T-SCORE=SD OF THE YOUNG ADULT MEAN.
--- NOTE | 2023-06-01 13:33 | MM ---
Reason for Exam: Screening (asymptomatic). Last mammogram was performed 1 year(s) and 1 month(s) ago. Patient History: Menarche at age 12. First Full-Term at age 20. Hysterectomy at age 30. Postmenopausal. Estrogen for 10 years from age 49 until age 59. Progesterone for 10 years from age 49 until age 59. Niece had breast cancer, age 55. Niece had breast cancer, age 60. Mother had breast cancer, age 44. Risk Values: Gilma 5 year model risk: 2.9%. NCI Lifetime model risk: 3.5%. Prior Study Comparison: 01/26/2017 Bilateral Screening Mammogram, [facility]. 02/02/2017 Right Diagnostic Mammogram, [facility]. 02/03/2018 Bilateral Screening Mammogram, [facility]. 02/07/2019 Bilateral Screening Mammogram, [facility]. 02/21/2019 Right Diagnostic Mammogram, [facility]. 04/30/2020 Bilateral Diagnostic Mammogram, [facility]. 05/12/2021 Bilateral Screening Mammogram, [facility]. 05/27/2022 Bilateral MG 3D screening mammo w/cad, [facility]. Tissue Density: The breast tissue is heterogeneously dense. This may lower the sensitivity of mammography. Findings: Analyzed By CAD. There is no suspicious group of microcalcifications or new suspicious mass. Benign-appearing calcifications bilaterally. Overall Assessment: Benign, BI-RAD 2 Management: Screening Mammogram of both breasts in [address] [facility] will attempt to contact patient to return for supplemental views and ultrasound if indicated. Patient should continue monthly self-breast exams. A clinical breast exam by your physician is recommended on an annual basis. This exam should not preclude additional follow-up of suspicious palpable abnormalities. Note on Gilma scores and lifetime risk: 1. A Gilma score greater than 3% is considered moderate risk. If this is the case, consider specialist referral to assess eligibility for a risk reducing agent. 2. If overall lifetime risk for the development of breast cancer is 20% or higher, the patient may qualify for future screening with alternating mammogram and breast MRI. Electronically signed and approved by: Cornelius Kohli DO
== END | disposition home or self-care (01) ==
LOC: RADMAMWWP 12:33
PROVIDERS: ATTEND Internal Medicine Geriatric Medicine
DX: Z12.31 Encounter for screening mammogram for malignant neoplasm of breast (principal); M81.0 Age-related osteoporosis without current pathological fracture; M85.89 Other specified disorders of bone density and structure, multiple sites; Z78.0 Asymptomatic menopausal state; Z80.3 Family history of malignant neoplasm of breast
CPT/HCPCS: 77063; 77067; 77080

== ENCOUNTER → 2023-06-27 | Outpatient (CLI) | payer MEDICARE ==
--- NOTE | 2023-06-27 17:42 | US ---
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 Indirect Doppler criteria was utilized. FINDINGS: EXAM MEASUREMENTS: RIGHT: Peak Systolic Velocity (PSV) cm/sec ----- Right CCA: 72.9 ----- Right ICA: 84.4 ----- Right ECA: 129 ICA/CCA ratio: 1.2 RIGHT: End Diastole cm/sec ----- Right CCA: 12.1 ----- Right ICA: 19.5 ----- Right ECA: 7.5 LEFT: Peak Systolic Velocity (PSV) cm/sec ----- Left CCA: 141 ----- Left ICA: 174 ----- Left ECA: 131 ICA/CCA ratio: 1.2 LEFT: End Diastole cm/sec ----- Left CCA: 25.4 ----- Left ICA: 25.4 ----- Left ECA: 0.0 VERTEBRALS (direction of flow): Right Vertebral: Antegrade Left Vertebral: Antegrade Rhythm: Normal GLASS BLOCK INSTALLER NOTES: Heterogeneous plaque on the left with no significant stenosis seen, tortous vessel s IMPRESSION: No evidence for hemodynamically significant stenosis. Criteria for Assigning % of Stenosis / Diameter reduction (Estimation based on the indirect measurements of the internal carotid artery velocities (ICA PSV). 1. Normal (no stenosis)=ICA PSV < 125 cm/s: ratio < 2.0: ICA EDV<40 cm/s. 2. Less than 50% stenosis=ICA PSV < 125 cm/s: ratio < 2.0: ICA EDV<40 cm/s. 3. 50 to 69% stenosis=ICA PSV of 125 to 230 cm/s: ration 2.0 ? 4.0: ICA EDV 40-100 cm/s. 4. Greater than 70% stenosis to near occlusion= ICA PSV > 230 cm/s: ratio > 4.0: ICA EDV > 100 cm/s. 5. Near occlusion= ICA PSV velocities may be low or undetectable: variable ratio and ICA EDV. 6. Total occlusion=unable to detect flow.
--- NOTE | 2023-06-27 23:01 | MR ---
EXAMINATION TYPE: MR brain wo/w con DATE OF EXAM: 06/27/2023 COMPARISON: None HISTORY: Stroke of left eye CONTRAST: Performed utilizing 7 mL intravenous Gadavist gadolinium contrast. TECHNIQUE: Multiplanar, multiecho imaging on a 3.0 Sandy magnet is performed through the brain. Stud y is performed within 24 hours of arrival to the hospital. The craniovertebral junction is normal. The pituitary is normal. Diffusion-weighted imaging is performed. No abnormal hyperintensity is present to suggest an acute i ntracranial infarct or acute ischemic change. There are patchy to confluence periventricular white matter hyperintensities on T2 and inversion gabi very weighted sequences compatible with microvascular ischemic changes. Some changes are within the b rainstem. Chronic white matter ischemic changes are within the differential. Vasculitis, focal sclero sis, Lyme disease could be considered within the differential. Ventricles and sulci are mildly prominent for the patient age. There is some fluid within the right m astoid air cells. Correlate for mastoiditis. No abnormal enhancement is evident. IMPRESSION: 1. Atrophy with patchy to confluent periventricular white matter changes. Chronic white matter ischem ic changes likely within the differential. 2. Medical consideration for mild right mastoiditis.
--- NOTE | 2023-06-28 10:25 | CA ---
Transthoracic Echo Report Name: Tammy Jones Age: 82 Gender: F : 1940 Exam Date: 06/27/2023 17:29 Exam Location: [facility] Ht (in): 60 Wt (lb): 150 Ordering Physician: Grant Whitehead MD Attending/Referring Phys: Grant Whitehead MD Cat Scan Technologist Liliya Jimenez [facility] Procedure CPT: Indications: I63.9 stoke Cardiac Hx: Technical Quality: Fair Contrast 1: Total Dose (mL): Contrast 2: Total Dose (mL): MEASUREMENTS (Male / Female) Normal Values 2D ECHO LV Diastolic Diameter PLAX 5.5 cm 4.2 - 5.9 / 3.9 - 5.3 cm LV Systolic Diameter PLAX 3.5 cm IVS Diastolic Thickness 0.8 cm 0.6 - 1.0 / 0.6 - 0.9 cm LVPW Diastolic Thickness 1.0 cm 0.6 - 1.0 / 0.6 - 0.9 cm LV Relative Wall Thickness 0.3 LVOT Diameter 2.0 cm LA Volume 50.6 cm??? 18 - 58 / 22 - 52 cm??? LA Volume Index 29.4 cm???/m??? 16 - 28 cm???/m??? Ascending Aorta Diameter 3.6 cm M-MODE Aortic Root Diameter MM 2.6 cm LA Systolic Diameter MM 4.4 cm LA Ao Ratio MM 1.7 AV Cusp Separation MM 1.8 cm DOPPLER AV Peak Velocity 152.2 cm/s AV Peak Gradient 9.3 mmHg AV Mean Velocity 100.9 cm/s AV Mean Gradient 4.7 mmHg AV Velocity Time Integral 31.7 cm AI Peak Velocity 356.6 cm/s AI Peak Gradient 50.9 mmHg AI Pressure Half Time 523.0 ms LVOT Peak Velocity 108.6 cm/s LVOT Peak Gradient 4.7 mmHg LVOT Velocity Time Integral 26.0 cm LVOT Stroke Volume 79.3 cm??? LVOT Stroke Volume Index 48.0 ml/m??? LVOT Cardiac Index 3363.3 cm???/min???m??? AV Area Cont Eq vti 2.5 cm??? AV Area Cont Eq pk 2.2 cm??? MV Area PHT 3.6 cm??? Mitral E Point Velocity 71.3 cm/s Mitral A Point Velocity 98.2 cm/s Mitral E to A Ratio 0.7 MV Deceleration Time 210.9 ms LV E' Lateral Velocity 8.2 cm/s Mitral E to LV E' Lateral Ratio 8.7 LV E' Septal Velocity 5.4 cm/s Mitral E to LV E' Septal Ratio 13.3 TR Peak Velocity 316.9 cm/s TR Peak Gradient 40.2 mmHg Right Atrial Pressure 3.0 mmHg Pulmonary Artery Systolic Pressu 43.2 mmHg Right Ventricular Systolic Press 43.2 mmHg FINDINGS Left Ventricle Mildly increased left ventricular diastolic diameter. Mildly increased posterior wall thickness. Normal left ventricular systolic function with no obvious regional wall motion abnormalities. Left ventricular ejection fraction is estimated at 55-60%. Right Ventricle Right ventricle at upper limits of normal. Moderate pulmonary hypertension. Right Atrium Normal right atrial size. Left Atrium Mildly increased left atrial volume. Mildly increased left atrial area. Mitral Valve Mitral valve thickened. Mitral annular calcification. Moderate thickening/calcification of the posterior mitral valve leaflet. Mild mitral regurgitation. Aortic Valve Trileaflet aortic valve. Mild thickening and calcification of the aortic valve cusps. Mild aortic regurgitation. Tricuspid Valve Structurally normal tricuspid valve. Mild tricuspid regurgitation. Pulmonic Valve Structurally normal pulmonic valve. Moderate pulmonic regurgitation. Pericardium No pericardial effusion. Aorta Normal size aortic root and proximal ascending aorta. CONCLUSIONS Left ventricular ejection fraction is estimated at 55-60%. No obvious regional wall motion abnormalities. Mild left atrial dilatation RVSP estimated at 43 mmHg. Moderate pulmonary hypertension Mild MR Aortic sclerosis, mild aortic regurgitation Previewed by: Dr Bonilla Peraza (Electronically Signed) Final Date: 28 June 2023 10:24
== END | disposition home or self-care (01) ==
LOC: RADUSWWP 16:39
PROVIDERS: ATTEND Internal Medicine Geriatric Medicine
DX: G93.89 Other specified disorders of brain (principal); G31.9 Degenerative disease of nervous system, unspecified; I67.82 Cerebral ischemia; I65.29 Occlusion and stenosis of unspecified carotid artery; I63.9 Cerebral infarction, unspecified
CPT/HCPCS: 93306; 93880; 70553; A9585

== ENCOUNTER → 2024-05-02 | Outpatient (CLI) | payer MEDICARE ==
--- NOTE | 2024-05-02 15:46 | MR ---
EXAMINATION TYPE: MR hip RT wo con, MR pelvis wo con DATE OF EXAM: 05/02/2024 2:34 PM COMPARISON: None. 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 TECHNIQUE: Multiplanar, multisequence images of the pelvis and right hip were obtained without IV con trast. FINDINGS: There is levoconvex curvature of the lumbar spine with eccentric moderate degenerative disc disease t oward the right at L3-L4. No hip fracture or AVN. Suggestion of mild superolateral joint space narrowing of both hips. Physiolo gic joint fluid on both sides. There is increased signal at the bilateral gluteal insertions with small tears at the insertions of t he lateral portion of the gluteus medius tendons on both sides. Trace effusion subgluteus minimus bur sa on the right. Only trace fluid in the region of the trochanteric bursa on both sides. Focal edema at the level of the left iliotibial tract lateral to the left hip. The rectus femoris and hamstrings origins as well as the iliopsoas insertions are intact. There is some patchy soft tissue edema interposed between the lesser trochanters and ischial tuberosi ty, right greater than left, axial image 13. The sacrum and SI joints appear intact. Symmetric course, caliber, and signal intensity of the sciatic nerves. Mild pelvic floor relaxation. Uterus surgically absent. Neither ovary clearly identified. There may b e a small fatty right indirect inguinal hernia. IMPRESSION: 1. Mild bilateral hip OA. No acute or healing fracture seen. 2. Moderate bilateral insertional gluteal tendinosis. Small tears at the lateral gluteus medius inser tions on both sides. Trace fluid in the trochanteric bursa on both sides. Trace effusion right subglu teus minimus bursa. 3. Soft tissue edema between the lesser trochanter and ischial tuberosity, right greater than left. F indings can be seen with ischiofemoral impingement. 4. Focal soft tissue edema lateral to the left hip in the region of the iliotibial tract. Correlate f or a mild muscle strain here. 5. Possible small fatty right inguinal hernia. [facility], , 05/02/2024 3:43 PM
== END | disposition home or self-care (01) ==
LOC: RADMRIMAIN 13:13
PROVIDERS: ATTEND Orthopaedic Surgery
DX: M70.61 Trochanteric bursitis, right hip (principal); M51.369 Other intervertebral disc degeneration, lumbar region without mention of lumbar back pain or lower extremity pain; M16.0 Bilateral primary osteoarthritis of hip; M25.451 Effusion, right hip; R60.0 Localized edema
CPT/HCPCS: 72195

== ENCOUNTER 2024-05-27 21:14 | Emergency (ER) | payer MEDICARE ==
[2024-05-27 21:25] VITALS: RESP 18; TEMP 98.3
[2024-05-27] MEDS: diphenhydrAMINE 50 MG/ML 1 ML VIAL IVP STA (21:37)
[2024-05-27] MEDS: DEXAMETHASONE SOD PHOSPHATE 10 MG/ML 1 ML VIAL IV STA (21:37)
[2024-05-27 22:09] LABS: Basophils % (A) 0 %; Eosinophils # (A) 0.3 k/uL (0-0.7); Eosinophils % (A) 2 %; HCT 41.5 % (34.0-46.0); HGB 13.8 gm/dL (11.4-16.0); Lymphocytes # (A) 1.5 k/uL (1.0-4.8); Lymphocytes % (A) 12 %; MCH 31.3 pg (25.0-35.0); MCHC 33.2 g/dL (31.0-37.0); MCV 94.3 fL (80.0-100.0); Mean Platelet Volume 7.7; Monocytes # (A) 0.8 k/uL (0-1.0); Monocytes % (A) 6 %; Neutrophils # (A) 9.8 k/uL (1.3-7.7); Neutrophils % (A) 78 %; Platelet Count 299 k/uL (150-450); RDW 13.1 % (11.5-15.5); WBC 12.5 k/uL (3.8-10.6)
[2024-05-27 22:39] LABS: ALT 14 U/L (4-34); AST 22 U/L (14-36); African American GFR (CKD) 43 (>60 ml/min/1.73 sqM); Albumin 4.5 g/dL (3.5-5.0); Alkaline Phosphatase 63 U/L (38-126); Anion Gap 14 mmol/L; Blood Urea Nitrogen 35 mg/dL (7-17); Calcium 9.5 mg/dL (8.4-10.2); Carbon Dioxide 23 mmol/L (22-30); Chloride 102 mmol/L (98-107); Glucose 108 mg/dL (74-99); Non-African American GFR(CKD) 37 (>60 ml/min/1.73 sqM); Potassium 4.6 mmol/L (3.5-5.1); Sodium 139 mmol/L (137-145); Total Bilirubin 0.6 mg/dL (0.2-1.3); Total Protein 7.5 g/dL (6.3-8.2)
--- NOTE | 2024-05-27 22:45 | ED ---
General Adult HPI - General Chief complaint: Allergic Reaction Stated complaint: allergic reaction, hard time swallowing Time Seen by Provider: 05/27/24 21:26 Source: patient, RN notes reviewed, old records reviewed Mode of arrival: ambulatory - History of Present Illness Initial comments: 83-year-old female with suspected allergic reaction. Patient noted over the past several hours that she had generalized itchy rash and noted a hard time swallowing. She states she did eat a salad which was new with an unknown dressing which she had not had before. No other new exposures or ingestions. No difficulty breathing. No fever - Related Data Home Medications Medication Instructions Recorded Confirmed Potassium Chloride [Klor-Con 10] 10 meq PO BID 12/21/13 06/26/20 Rosuvastatin Calcium [Crestor] 10 mg PO W/SUPPER 12/21/13 06/26/20 cycloSPORINE 0.05% OPHTH SOLN 1 drop BOTH EYES Q12H 12/21/13 06/26/20 [Restasis 0.05% Ophth Soln] Aspirin EC [Ecotrin Low Dose] 81 mg PO HS 01/22/14 06/26/20 amLODIPine BESYLATE [Norvasc] 5 mg PO DAILY@1530 01/22/14 06/26/20 Levothyroxine Sodium [Synthroid] 50 mcg PO DAILY 02/21/19 06/26/20 Metoprolol Tartrate [Lopressor] 200 mg PO HS 02/21/19 06/26/20 Losartan Potassium 100 mg PO DAILY 06/26/20 06/26/20 Sucralfate [Carafate] 1 gm PO ACHS 06/26/20 06/26/20 hydroCHLOROthiazide [Hydrodiuril] 25 mg PO DAILY 06/26/20 06/26/20 Previous Rx's Medication Instructions Recorded hydrALAZINE HCL [Apresoline] 50 mg PO BID #20 tab 06/26/20 hydrALAZINE HCL [Apresoline] 50 mg PO BID #20 tab 06/26/20 Allergies Allergy/AdvReac Type Severity Reaction Status Date / Time cephalexin Allergy Rash/Hives Verified 05/27/24 21:27 Penicillins Allergy Anaphylaxis Verified 05/27/24 21:27 Sulfa (Sulfonamide AdvReac Severe dizzyness Verified 06/26/20 14:08 Antibiotics) naproxen AdvReac tachycardia Verified 06/26/20 14:08 prochlorperazine edisylate AdvReac Nausea & Verified 06/26/20 14:08 [From Compazine] Vomiting prochlorperazine maleate AdvReac Nausea & Verified 06/26/20 14:08 [From Compazine] Vomiting Review of Systems ROS Statement: Those systems with pertinent positive or pertinent negative responses have been documented in the HPI. ROS Other: All systems not noted in ROS Statement are negative. Past Medical History Past Medical History: GERD/Reflux, Hyperlipidemia, Hypertension, Osteoarthritis (OA), Skin Disorder Additional Past Medical History / Comment(s): pt states CHF, vericose veins, and pre skin cancer rx of chemo cream to legs History of Any Multi-Drug Resistant Organisms: None Reported Past Surgical History: Cholecystectomy, Hysterectomy, Tonsillectomy Additional Past Surgical History / Comment(s): Right knee replacement, bladder surgery Past Anesthesia/Blood Transfusion Reactions: No Reported Reaction Past Psychological History: Anxiety Smoking Status: Never smoker Past Alcohol Use History: None Reported Past Drug Use History: None Reported - Past Family History Mother Brother(s) Family Medical History: Cancer General Exam General appearance: alert, in no apparent distress Head exam: Present: atraumatic, normocephalic Eye exam: Present: normal appearance, PERRL ENT exam: Present: normal oropharynx, other Neck exam: Present: normal inspection. Absent: tenderness, meningismus Respiratory exam: Present: normal lung sounds bilaterally. Absent: respiratory distress, wheezes Cardiovascular Exam: Present: regular rate, normal rhythm GI/Abdominal exam: Present: soft. Absent: distended, tenderness, guarding Extremities exam: Present: normal inspection, normal capillary refill. Absent: pedal edema Neurological exam: Present: alert, oriented X3, CN II-XII intact. Absent: motor sensory deficit Skin exam: Present: warm, dry, intact. Absent: cyanosis, diaphoretic Course Vital Signs 05/27/24 05/27/24 21:20 22:54 Temperature 98.3 F Pulse Rate 105 H 87 Respiratory 18 18 Rate Blood Pressure 178/105 177/82 O2 Sat by Pulse 97 96 Oximetry Medical Decision Making - Medical Decision Making Was pt. sent in by a medical professional or institution (, PA, GINSENG FARMER, urgent care, hospital, or penitentiary...) When possible be specific @ -No Did you speak to anyone other than the patient for history (EMS, parent, family, police, friend...)? What history was obtained from this source @ -No Did you review nursing and triage notes (agree or disagree)? Why? @ -I reviewed and agree with nursing and triage notes Were old charts reviewed (outside hosp., previous admission, EMS record, old EKG, old radiological studies, urgent care reports/EKG's, penitentiary records)? Report findings @ -No old charts were reviewed Differential Diagnosis: General allergic reaction, food allergy, medication effect EKG interpreted by me (3pts min.). @ -As above X-rays interpreted by me (1pt min.). @ -None done CT interpreted by me (1pt min.). @ -None done U/S interpreted by me (1pt. min.). @ -None done What testing was considered but not performed or refused? (CT, X-rays, U/S, labs)? Why? @ -None What meds were considered but not given or refused? Why? @ -None Did you discuss the management of the patient with other professionals (professionals i.e. , PA, GINSENG FARMER, lab, RT, psych nurse, social media executive, corn breeder, teacher, conservation officer, case checker)? Give summary @ -No Was smoking cessation discussed for >3mins.? @ -No Was critical care preformed (if so, how long)? @ -No Were there social determinants of health that impacted care today? How? (Homel essness, low income, unemployed, alcoholism, drug addiction, transportation, low edu. Level, literacy, decrease access to med. care, penitentiary, rehab)? @ -No Was there de-escalation of care discussed even if they declined (Discuss DNR or withdrawal of care, Hospice)? DNR status @ -No What co-morbidities impacted this encounter? (DM, HTN, Smoking, COPD, CAD, Cancer, CVA, ARF, Chemo, Hep., AIDS, mental health diagnosis, sleep apnea, morbid obesity)? @ -None Was patient admitted / discharged? Hospital course, mention meds given and route, prescriptions, significant lab abnormalities, going to OR and other pertinent info. @3-year-old female with suspected food allergy after eating a new type of salad. The patient's given Decadron and Benadryl and observed in the emergency department with significant improvement no further difficulty swallowing or difficulty breathing at all. Vital signs are stable mildly hypertensive. Patient will take Benadryl as needed and return to the emergency department if her symptoms should worsen. Undiagnosed new problem with uncertain prognosis? @ -No Drug Therapy requiring intensive monitoring for toxicity (Heparin, Nitro, Insulin, Cardizem)? @ -No Were any procedures done? @ -No Diagnosis/symptom? @Food allergy Acute, or Chronic, or Acute on Chronic? @ -Acute Uncomplicated (without systemic symptoms) or Complicated (systemic symptoms)? @ -Default Side effects of treatment? @ -No Exacerbation, Progression, or Severe Exacerbation? @ -No Poses a threat to life or bodily function? How? (Chest pain, USA, [place], pneumonia, PE, COPD, DKA, ARF, appy, cholecystitis, CVA, Diverticulitis, Homicidal, Suicidal, threat to staff... and all critical care pts) @ -No - Lab Data Result diagrams: 05/27/24 21:31 05/27/24 21:31 Lab Results 05/27/24 05/27/24 Range/Units 21:31 21:31 WBC 12.5 H (3.8-10.6) k/uL RBC 4.40 (3.80-5.40) m/uL Hgb 13.8 (11.4-16.0) gm/dL Hct 41.5 (34.0-46.0) % MCV 94.3 (80.0-100.0) fL MCH 31.3 (25.0-35.0) pg MCHC 33.2 (31.0-37.0) g/dL RDW 13.1 (11.5-15.5) % Plt Count 299 (150-450) k/uL MPV 7.7 Neutrophils % 78 % Lymphocytes % 12 % Monocytes % 6 % Eosinophils % 2 % Basophils % 0 % Neutrophils # 9.8 H (1.3-7.7) k/uL Lymphocytes # 1.5 (1.0-4.8) k/uL Monocytes # 0.8 (0-1.0) k/uL Eosinophils # 0.3 (0-0.7) k/uL Basophils # 0.0 (0-0.2) k/uL Sodium 139 (137-145) mmol/L Potassium 4.6 (3.5-5.1) mmol/L Chloride 102 (98-107) mmol/L Carbon Dioxide 23 (22-30) mmol/L Anion Gap 14 mmol/L BUN 35 H (7-17) mg/dL Creatinine 1.31 H (0.52-1.04) mg/dL Est GFR (CKD-EPI)AfAm 43 (>60 ml/min/1.73 sqM) Est GFR (CKD-EPI)NonAf 37 (>60 ml/min/1.73 sqM) Glucose 108 H (74-99) mg/dL Calcium 9.5 (8.4-10.2) mg/dL Total Bilirubin 0.6 (0.2-1.3) mg/dL AST 22 (14-36) U/L ALT 14 (4-34) U/L Alkaline Phosphatase 63 (38-126) U/L Total Protein 7.5 (6.3-8.2) g/dL Albumin 4.5 (3.5-5.0) g/dL Disposition Clinical Impression: Allergic reaction Disposition: HOME SELF-CARE Condition: Fair Instructions (If sedation given, give patient instructions): Food Allergy (ED), General Allergic Reaction (ED) Is patient prescribed a controlled substance at d/c from ED?: No Referrals: Grant Whitehead MD [Primary Care Provider] - 1-2 days Time of Disposition: 23:04
[2024-05-27 22:55] VITALS: BP 177/82; PULSE 87
== END 2024-05-27 23:08 | disposition home or self-care (01) ==
LOC: EC 21:14
DX: T78.04XA Anaphylactic reaction due to fruits and vegetables, initial encounter (principal); Z88.0 Allergy status to penicillin; Z88.2 Allergy status to sulfonamides; Z88.6 Allergy status to analgesic agent; Z88.8 Allergy status to other drugs, medicaments and biological substances
CPT/HCPCS: 36415; 80053; 85025; 99283; 96374; 96375; J1200; J1100

== ENCOUNTER 2024-05-28 11:47 | Emergency (ER) | payer MEDICARE ==
[2024-05-28 11:58] VITALS: RESP 18
--- NOTE | 2024-05-28 13:57 | ED ---
Skin/Abscess/FB HPI - General Chief complaint: Skin/Abscess/Foreign Body Stated complaint: Rash on right arm, allergic reaction Time Seen by Provider: 05/28/24 13:55 Source: patient, RN notes reviewed Mode of arrival: ambulatory Limitations: no limitations - History of Present Illness Initial comments: 83-year-old presenting for hives x 2 hours. States she was seen in the ER last night for infected allergic reaction where she was given steroid and benadryl injection. States symptoms resolved at time of discharge. Patient noticed welts on her right arm this morning which prompted her to return to the ER for evaluation. Patient states since she has been triage, welts have resolved. Denies lip or tongue swelling. Denies difficulty breathing or swallowing. Denies new medications, lotions, soaps, detergents. - Related Data Home Medications Medication Instructions Recorded Confirmed Potassium Chloride [Klor-Con 10] 10 meq PO BID 12/21/13 06/26/20 Rosuvastatin Calcium [Crestor] 10 mg PO W/SUPPER 12/21/13 06/26/20 cycloSPORINE 0.05% OPHTH SOLN 1 drop BOTH EYES Q12H 12/21/13 06/26/20 [Restasis 0.05% Ophth Soln] Aspirin EC [Ecotrin Low Dose] 81 mg PO HS 01/22/14 06/26/20 amLODIPine BESYLATE [Norvasc] 5 mg PO DAILY@1530 01/22/14 06/26/20 Levothyroxine Sodium [Synthroid] 50 mcg PO DAILY 02/21/19 06/26/20 Metoprolol Tartrate [Lopressor] 200 mg PO HS 02/21/19 06/26/20 Losartan Potassium 100 mg PO DAILY 06/26/20 06/26/20 Sucralfate [Carafate] 1 gm PO ACHS 06/26/20 06/26/20 hydroCHLOROthiazide [Hydrodiuril] 25 mg PO DAILY 06/26/20 06/26/20 Previous Rx's Medication Instructions Recorded hydrALAZINE HCL [Apresoline] 50 mg PO BID #20 tab 06/26/20 hydrALAZINE HCL [Apresoline] 50 mg PO BID #20 tab 06/26/20 Famotidine [Pepcid] 40 mg PO DAILY 4 Days #8 tablet 05/28/24 methylPREDNISolone [Medrol Dose 0 mg PO DIRECTED #1 packet 05/28/24 Pack] Allergies Allergy/AdvReac Type Severity Reaction Status Date / Time cephalexin Allergy Rash/Hives Verified 05/28/24 11:58 Penicillins Allergy Anaphylaxis Verified 05/28/24 11:58 Sulfa (Sulfonamide AdvReac Severe dizzyness Verified 05/28/24 11:58 Antibiotics) naproxen AdvReac tachycardia Verified 05/28/24 11:58 prochlorperazine edisylate AdvReac Nausea & Verified 05/28/24 11:58 [From Compazine] Vomiting prochlorperazine maleate AdvReac Nausea & Verified 05/28/24 11:58 [From Compazine] Vomiting Review of Systems ROS Statement: Those systems with pertinent positive or pertinent negative responses have been documented in the HPI. ROS Other: All systems not noted in ROS Statement are negative. Past Medical History Past Medical History: GERD/Reflux, Hyperlipidemia, Hypertension, Osteoarthritis (OA), Skin Disorder Additional Past Medical History / Comment(s): pt states CHF, vericose veins, and pre skin cancer rx of chemo cream to legs History of Any Multi-Drug Resistant Organisms: None Reported Past Surgical History: Cholecystectomy, Hysterectomy, Tonsillectomy Additional Past Surgical History / Comment(s): Right knee replacement, bladder surgery Past Anesthesia/Blood Transfusion Reactions: No Reported Reaction Past Psychological History: Anxiety Smoking Status: Never smoker Past Alcohol Use History: None Reported Past Drug Use History: None Reported - Past Family History Mother Brother(s) Family Medical History: Cancer General Exam Limitations: no limitations General appearance: alert, in no apparent distress Head exam: Present: atraumatic, normocephalic, normal inspection Eye exam: Present: normal appearance, PERRL, EOMI. Absent: scleral icterus, conjunctival injection, periorbital swelling ENT exam: Present: normal exam, mucous membranes moist Neck exam: Present: normal inspection. Absent: tenderness, meningismus, lymphadenopathy Respiratory exam: Present: normal lung sounds bilaterally. Absent: respiratory distress, wheezes, rales, rhonchi, stridor Cardiovascular Exam: Present: regular rate, normal rhythm, normal heart sounds. Absent: systolic murmur, diastolic murmur, rubs, gallop, clicks GI/Abdominal exam: Present: soft, normal bowel sounds. Absent: distended, tenderness, guarding, rebound, rigid Extremities exam: Present: normal inspection, full ROM, normal capillary refill. Absent: tenderness, pedal edema, joint swelling, calf tenderness Neurological exam: Present: alert, oriented X3 Psychiatric exam: Present: normal affect, normal mood Skin exam: Present: warm, dry, intact, normal color, rash (Mild raised erythematous plaques present on right ventral forearm) Course Vital Signs 05/28/24 11:56 Temperature 98.1 F Pulse Rate 82 Respiratory 18 Rate Blood Pressure 141/68 O2 Sat by Pulse 94 L Oximetry Medical Decision Making - Medical Decision Making Was pt. sent in by a medical professional or institution (JAZZ Stafford, GRAPHICS EDITOR, urgent care, hospital, or intermediate...) When possible be specific @ -No Did you speak to anyone other than the patient for history (EMS, parent, family, police, friend...)? What history was obtained from this source @ -No Did you review nursing and triage notes (agree or disagree)? Why? @ -I reviewed and agree with nursing and triage notes Were old charts reviewed (outside hosp., previous admission, EMS record, old EKG, old radiological studies, urgent care reports/EKG's, intermediate records)? Report findings @ -ER visit from last night reviewed Differential Diagnosis (chest pain, altered mental status, abdominal pain women, abdominal pain men, vaginal bleeding, weakness, fever, dyspnea, syncope, headache, dizziness, GI bleed, back pain, seizure, CVA, palpatations, mental health, musculoskeletal)? @ -Urticaria, allergic reaction, cellulitis, contact dermatitis, eczema, psoriasis EKG interpreted by me (3pts min.). @ -None X-rays interpreted by me (1pt min.). @ -None done CT interpreted by me (1pt min.). @ -None done U/S interpreted by me (1pt. min.). @ -None done What testing was considered but not performed or refused? (CT, X-rays, U/S, labs)? Why? @ -None What meds were considered but not given or refused? Why? @ -none Did you discuss the management of the patient with other professionals (professionals i.e. JAZZ Stafford, GRAPHICS EDITOR, lab, RT, psych nurse, high school social studies tutor, audio production instructor, teacher, optics technical officer, adult protective caseworker)? Give summary @ -No Was smoking cessation discussed for >3mins.? @ -No Was critical care preformed (if so, how long)? @ -No Were there social determinants of health that impacted care today? How? (Homelessness, low income, unemployed, alcoholism, drug addiction, transportation, low edu. Level, literacy, decrease access to med. care, custodial, rehab)? @ -No Was there de-escalation of care discussed even if they declined (Discuss DNR or withdrawal of care, Hospice)? DNR status @ -No What co-morbidities impacted this encounter? (DM, HTN, Smoking, COPD, CAD, Cancer, CVA, ARF, Chemo, Hep., AIDS, mental health diagnosis, sleep apnea, morbid obesity)? @ -None Was patient admitted / discharged? Hospital course, mention meds given and route, prescriptions, significant lab abnormalities, going to OR and other pertinent info. @ -Discharged. This is a 83-year-old female presenting for hives right upper extremity x 2 hours. Patient was seen for suspected allergic reaction last night where she underwent steroid and Benadryl injection. No red flag symptoms. No lip or tongue swelling, difficulty breathing or swallowing. Vital signs within acceptable limits. Physical examination consistent with urticaria right upper extremity. Patient was given one-time dose of prednisone and Pepcid. Prescribed Medrol Dosepak and Pepcid to start tomorrow. Advised to continue Benadryl every 6 hours. Appropriate return precautions discussed. Case was discussed with my ED attending Dr. Crump Undiagnosed new problem with uncertain prognosis? @ -No Drug Therapy requiring intensive monitoring for toxicity (Heparin, Nitro, Insulin, Cardizem)? @ -No Were any procedures done? @ -No Diagnosis/symptom? @ -Urticaria Acute, or Chronic, or Acute on Chronic? @ -Acute Uncomplicated (without systemic symptoms) or Complicated (systemic symptoms)? @ -Uncomplicated Side effects of treatment? @ -No Exacerbation, Progression, or Severe Exacerbation? @ -No Poses a threat to life or bodily function? How? (Chest pain, USA, AR, pneumonia, PE, COPD, DKA, ARF, appy, cholecystitis, CVA, Diverticulitis, Homicidal, Suicidal, threat to staff... and all critical care pts) @ -No Disposition Clinical Impression: Urticaria Disposition: HOME SELF-CARE Condition: Stable Instructions (If sedation given, give patient instructions): Urticaria (ED) Additional Instructions: Start Medrol pack tomorrow. Take Pepcid once daily for 4 days. Take Benadryl every 6 hours for 3 days. Follow-up with your PCP as discussed. Please return to the Emergency Department if symptoms worsen or any other concerns. Prescriptions: methylPREDNISolone [Medrol Dose Pack] 0 mg PO DIRECTED #1 packet Famotidine [Pepcid] 40 mg PO DAILY 4 Days #8 tablet Is patient prescribed a controlled substance at d/c from ED?: No Referrals: Grant Whitehead MD [Primary Care Provider] - 1-2 days Time of Disposition: 13:57
[2024-05-28] MEDS: FAMOTIDINE 20 MG TAB PO STA (14:08)
[2024-05-28] MEDS: predniSONE 50 MG TAB PO STA (14:09)
[2024-05-28 14:36] VITALS: BP 136/70; PULSE 80; TEMP 98.2
== END 2024-05-28 14:36 | disposition home or self-care (01) ==
LOC: EC 11:47
DX: L50.9 Urticaria, unspecified (principal); Z88.0 Allergy status to penicillin; Z88.1 Allergy status to other antibiotic agents; Z88.2 Allergy status to sulfonamides; Z88.8 Allergy status to other drugs, medicaments and biological substances
CPT/HCPCS: 99283; J7512

== ENCOUNTER → 2024-09-18 | Outpatient (CLI) | payer MEDICARE ==
--- NOTE | 2024-09-18 13:28 | MM ---
Reason for Exam: Screening (asymptomatic). Last mammogram was performed 1 year(s) and 3 month(s) ago. Patient History: Menarche at age 12. First Full-Term at age 20. Hysterectomy at age 30. Postmenopausal. Estrogen for 10 years from age 49 until age 59. Progesterone for 10 years from age 49 until age 59. Niece had breast cancer, age 55. Niece had breast cancer, age 60. Mother had breast cancer, age 44. Risk Values: Gilma 5 year model risk: 2.7%. NCI Lifetime model risk: 3.0%. Prior Study Comparison: 05/12/2021 Bilateral Screening Mammogram, [facility]. 05/27/2022 Bilateral MG 3D screening mammo w/cad, [facility]. 05/31/2023 Bilateral MG 3D screening mammo w/cad, [facility]. Tissue Density: The breasts are extremely dense, which lowers the sensitivity of mammography. Findings: Analyzed By CAD. There is no suspicious group of microcalcifications or new suspicious mass in either breast. Overall Assessment: Benign, BI-RAD 2 Management: Screening Mammogram of both breasts in 1 year. . Patient should continue monthly self-breast exams. A clinical breast exam by your physician is recommended on an annual basis. This exam should not preclude additional follow-up of suspicious palpable abnormalities. Note on Gilma scores and lifetime risk: 1. A Gilma score greater than 3% is considered moderate risk. If this is the case, consider specialist referral to assess eligibility for a risk reducing agent. 2. If overall lifetime risk for the development of breast cancer is 20% or higher, the patient may qualify for future screening with alternating mammogram and breast MRI. [facility], , 09/18/2024 1:24 PM. Electronically signed and approved by: Jason Galan M.D. Radiolog[facility]
== END | disposition home or self-care (01) ==
LOC: RADMAMWWP 12:38
PROVIDERS: ATTEND Internal Medicine Geriatric Medicine
DX: Z12.31 Encounter for screening mammogram for malignant neoplasm of breast (principal); R92.343 Mammographic extreme density, bilateral breasts; Z80.3 Family history of malignant neoplasm of breast; Z78.0 Asymptomatic menopausal state
CPT/HCPCS: 77063; 77067